=== PATIENT | male | born 1985 | race Caucasian/White ===

== ENCOUNTER 2022-11-14 06:11 | Emergency (ER) | payer OTHER ==
[2022-11-14] MEDS ORDERED: Silver Nitrate Application 1 EACH ONE (06:20)
[2022-11-14] MEDS ORDERED: Boostrix 0.5 ML (Tdap) VIAL (>/=7 yrs of age) ONE (06:27)
== END 2022-11-14 07:07 | disposition home or self-care (01) ==
LOC: CSHERS 06:11
DX: I83.90 Asymptomatic varicose veins of unspecified lower extremity (principal)
CPT/HCPCS: 90471; 90715; 99283